=== PATIENT | female | born 1940 | race Caucasian/White ===

== ENCOUNTER 2016-07-02 15:50 | Emergency (ER) | payer OTHER ==
[~2016-07-02] VITALS: Ht 165.1 cm; Wt 61.0 kg
[2016-07-02 15:53] VITALS: BP 130/61; PULSE 78; RESP 16; TEMP 98.9; O2SAT 95
[2016-07-02] MEDS ORDERED: [UNRECOGNIZED DRUG - CODE] PO (15:59)
[2016-07-02] MEDS ORDERED: PRAV40TA2 PO (15:59)
[2016-07-02] MEDS ORDERED: FLUO20CA4 PO (15:59)
[2016-07-02] MEDS ORDERED: TRAZ100T4 PO (15:59)
[2016-07-02] MEDS ORDERED: CALCTAB23 PO (15:59)
[2016-07-02] MEDS ORDERED: HYDR-3516 PO (16:20)
--- NOTE | 2016-07-02 16:47 | PD ---
HPI Chief Complaint: Musculoskeletal Complaint Time Seen by Provider: 16:24 Travel History International Travel<30 days: No Contact w/Intl Traveler<30days: No Traveled to known affect area: No History of Present Illness HPI 75-year-old female here for evaluation of left shoulder and left arm pain that started 2 days ago after falling onto her left side. The patient reports that she was trying to get something from underneath her bed when she fell to the ground. Her and landed on top for her. Pain is mainly in her left shoulder and left arm, however the patient also complains of some right shoulder pain. Pain is moderate, constant, worse with movements. She has limited range of motion in her left shoulder because of the pain. She denies head injury or LOC. No head neck or back pain. No chest pain or dyspnea. No abdominal pain. No pain in her lower extremities. She is not on any antiplatelets or anticoagulants. PFSH Past Medical History Arthritis: Yes High Cholesterol: Yes Diminished Hearing: No Reproductive: Yes (endometreosis) Tetanus Vaccination: < 5 Years Influenza Vaccination: Yes ?: Not Past Surgical History Cholecystectomy: Yes Gynecologic Surgery: Yes (endometreosis) Neurologic Surgery: Yes (L5 disc repair) Social History Alcohol Use: No Tobacco Use: No Substance Use: No Allergies-Medications (Allergen,Severity, Reaction): Coded Allergies: No Known Allergies (Unverified , 07/02/16) Reported Meds & Prescriptions Reported Meds & Active Scripts Active Reported Hydrocodone-Acetaminophen 5-325 mg Tab 1 Tab PO Q6H PRN Wal-Fex Allergy (Fexofenadine HCl) 60 Mg Tab 1 Tab PO DAILY Fluoxetine (Fluoxetine HCl) 20 Mg Cap 20 Mg PO DAILY Calcium 500 + D (Calcium Carbonate-Vitamin D) 500-125 Mg-Unit Tab 1 Tab PO BID Pravastatin 40 Mg Tab 40 Mg PO HS Trazodone (Trazodone HCl) 100 Mg Tab 100 Mg PO HS Review of Systems Except as stated in HPI: all other systems reviewed are Neg Physical Exam Narrative GENERAL: Well-developed, well-nourished, comfortable, reading a book, no acute distress. SKIN: Warm and dry. No lacerations, abrasions, or ecchymosis. HEAD: Atraumatic. Normocephalic. EYES: Pupils equal and round. No scleral icterus. No injection or drainage. ENT: Mucous membranes pink and moist. NECK: Trachea midline. No JVD. No midline cervical spinous step-off or tenderness. CARDIOVASCULAR: Regular rate and rhythm. Bilateral distal radial pulses are brisk and equal. RESPIRATORY: No accessory muscle use. Clear to auscultation. Breath sounds equal bilaterally. GASTROINTESTINAL: Abdomen soft, non-tender, nondistended. MUSCULOSKELETAL: Left shoulder/proximal humeral area with moderate edema, no ecchymosis, no obvious bony normality, limited range of motion secondary to pain , diffusely tender, no warmth or erythema. There is mild tenderness of the patient's right shoulder without obvious deformity, with normal range of motion. No midline vertebral step-off or tenderness. NEUROLOGICAL: Awake and alert. No obvious cranial nerve deficits. Motor grossly within normal limits. Normal speech. Normal sensation in bilateral upper extremities. PSYCHIATRIC: Appropriate mood and affect; insight and judgment normal. Data Data Last Documented VS Vital Signs Date Time Temp Pulse Resp B/P Pulse Ox O2 Delivery O2 Flow Rate FiO2 07/02/16 15:53 98.9 78 16 130/61 95 Orders Shoulder, Complete (>2vws) (07/02/16 ) Shoulder, Complete (>2vws) (07/02/16 ) Humerus (Min 2vws) (07/02/16 ) Forearm (2vws) (07/02/16 ) Sling And Swathe (07/02/16 ) MDM Medical Decision Making Medical Screen Exam Complete: Yes Emergency Medical Condition: Yes Differential Diagnosis Left shoulder fracture, left proximal humerus fracture, left shoulder dislocation, left shoulder contusion Narrative Course Vital signs are within normal limits. Left shoulder x-ray: Nondisplaced fracture of the proximal left humerus. Left humerus x-ray: Nondisplaced fracture of the left proximal humerus. Left forearm x-ray: CONCLUSION: Suspected chronic change at the medial aspect of the wrist. Acute fracture is not clearly identified. Right shoulder x-ray: CONCLUSION: Prominent defect seen at the mid right clavicle. This could be from a prior injury given the size of the gap. An acute fracture could have a similar appearance although with the gap being this wide some degree of chronic resorption at a prior fracture site is thought more likely. Patient was made aware of all findings. There is no tenderness or deformity at the left wrist. She reports 2 prior surgeries for her right clavicle for fracture. Left arm was placed in a sling and swath. She tells me that she has hydrocodone prescription at home and does not need anything more than that for pain. She is stable for discharge with outpatient follow-up with an orthopedic surgeon this week. She was informed on when to return to the emergency department. She verbalizes understanding and agreement with plan. Diagnosis Primary Impression: Closed fracture of left proximal humerus Qualified Code: S42.295A - Other closed nondisplaced fracture of proximal end of left humerus, initial encounter Referrals: Elieser Morgan MD 3 days Orthopedic surgeon Additional Instructions: Follow-up with orthopedic surgeon Dr. Morgan or an orthopedic surgeon of your choice this week. Return to the emergency department for worsening symptoms or any other concerns. Disposition: 01 DISCHARGE HOME Condition: Stable Clifford Long MD Jul 02, 2016 16:47
--- NOTE | 2016-07-02 17:10 | RADHPO ---
EXAM DATE/TIME: 07/02/2016 16:49 [facility] COMPARISON: No previous studies available for comparison. INDICATIONS : Left shoulder pain, fall. MEDICAL HISTORY : None. SURGICAL HISTORY : None. ENCOUNTER: Initial ACUITY: 2 days PAIN SCORE: 10/10 LOCATION: Left proximal humerus FINDINGS: There is nondisplaced fracture at the surgical neck of the proximal left humerus. The glenohumeral an d acromioclavicular joints are normally aligned. The bones are osteopenic. CONCLUSION: Nondisplaced fracture of the proximal left humerus. Phoenix Cordoba MD on July 02, 2016 at 17:07 Board Certified Radiologist. This report was verified electronically.
--- NOTE | 2016-07-02 17:11 | RADHPO ---
EXAM DATE/TIME: 07/02/2016 16:59 [facility] COMPARISON: No previous studies available for comparison. INDICATIONS : Left arm pain, fall. MEDICAL HISTORY : None. SURGICAL HISTORY : None. ENCOUNTER: Initial ACUITY: 2 days PAIN SCORE: 10/10 LOCATION: Left proximal humerus FINDINGS: There is a nondisplaced fracture of the proximal humerus at the surgical neck. The glenohumeral and e lbow joints are normally aligned. CONCLUSION: Nondisplaced proximal left humeral fracture. Phoenix Cordoba MD on July 02, 2016 at 17:09 Board Certified Radiologist. This report was verified electronically.
--- NOTE | 2016-07-02 17:28 | RADHPO ---
EXAM DATE/TIME: 07/02/2016 17:01 [facility] COMPARISON: No previous studies available for comparison. INDICATIONS : Left forearm pain, fall. MEDICAL HISTORY : None. SURGICAL HISTORY : None. ENCOUNTER: Initial ACUITY: 2 days PAIN SCORE: 1/10 LOCATION: Left forearm FINDINGS: Two view examination of the left forearm demonstrates no evidence of fracture or dislocation. Bony m ineralization is normal. There is some hypertrophic change seen adjacent to the pisiform. This could be related to the ulnar styloid. The ulnar styloid at the distal ulna is not seen. However, an area of cortical disruption is also not seen. The soft tissue structures are intact. CONCLUSION: Suspected chronic change at the medial aspect of the wrist. Acute fracture is not clearly identified. Phoenix Cordoba MD on July 02, 2016 at 17:24 Board Certified Radiologist. This report was verified electronically.
--- NOTE | 2016-07-02 17:34 | RADHPO ---
EXAM DATE/TIME: 07/02/2016 17:08 [facility] COMPARISON: No previous studies available for comparison. INDICATIONS : Right shoulder pain, fall. MEDICAL HISTORY : None. SURGICAL HISTORY : None. ENCOUNTER: Initial ACUITY: 2 days PAIN SCORE: 5/10 LOCATION: Right posterior shoulder FINDINGS: There is absence of the midportion of the clavicle. The gap between the two clavicular fragments yola sures approximately 2.8 cm. The acromioclavicular joint and glenohumeral joint are normally aligned. The proximal humerus and scapula appear grossly intact. CONCLUSION: Prominent defect seen at the mid right clavicle. This could be from a prior injury g iven the size of the gap. An acute fracture could have a similar appearance although with the gap be ing this wide some degree of chronic resorption at a prior fracture site is thought more likely. Phoenix Cordoba MD on July 02, 2016 at 17:22 Board Certified Radiologist. This report was verified electronically.
== END 2016-07-02 18:18 | disposition home or self-care (01) ==
LOC: PHEFT 15:50
DX: S42.295A Other nondisplaced fracture of upper end of left humerus, initial encounter for closed fracture (principal); E78.00 Pure hypercholesterolemia, unspecified; M19.90 Unspecified osteoarthritis, unspecified site; W19.XXXA Unspecified fall, initial encounter; W50.0XXA Accidental hit or strike by another person, initial encounter; Y93.9 Activity, unspecified; Y92.013 Bedroom of single-family (private) house as the place of occurrence of the external cause; Y99.9 Unspecified external cause status
CPT/HCPCS: 29240; 73030; 73060; 73090

== ENCOUNTER → 2016-12-03 | Day surgery (SDC) | payer OTHER ==
[~2016-12-03] MED LIST: ACETAMINOPHEN/HYDROcodone 325 MG/5 MG TAB ONE; BUPIVACAINE/EPINEPHRINE 0.5% 50 ML VIAL ONE; CALCTAB23 PO; FLUO20CA4 PO; HYDR-3516 PO; KETOROLAC TROMETHAMINE 30 MG/ML (IVP) VIAL IV PUSH ONE; LACTATED RINGER'S 1000 ML INJ 1,000 ML ONE; MORPHINE SULFATE 4 MG/ML INJ ONE; ONDANSETRON HCL 4 MG/2 ML VIAL IV PUSH ONE; PRAV40TA2 PO; PROPOFOL 200 MG/20 ML AMP IV ONE; TRAZ100T4 PO; [UNRECOGNIZED DRUG - CODE] PO; ceFAZolin INJ 1,000 MG VIAL ONE
--- NOTE | 2016-12-03 13:05 | MP ---
cc: GEORGI MAYO M.D. DATE OF SURGERY 12/03/2016 PREOPERATIVE DIAGNOSIS Right knee medial and lateral meniscus tears. POSTOPERATIVE DIAGNOSIS Right knee medial and lateral meniscus tears. PROCEDURE Right knee arthroscopic partial medial and partial lateral meniscectomy. ANESTHESIA General SURGEON Georgi Mayo MD COMPLICATIONS None known. INDICATION Tegan Brown is a 76-year-old female with severe patellofemoral arthritis and medial and lateral joint line pain with unstable tears identified on MRI scan. She now presents for arthroscopic surgery. The risks and benefits have thoroughly been discussed. The options and alternatives to treatment discussed and no guarantees were made or offered. She wished to proceed with surgery. Informed stent was obtained. PROCEDURE The patient was brought in the operating room. She was placed under general anesthetic. The right lower extremity was prepped and draped in the usual sterile fashion. IV antibiotics given. Time-out was completed. Marcaine injected about the inferolateral portal, made, blunt trocar used to use to introduce the cannula and the knee was insufflated with saline. Patellofemoral joint showed severe [id number] chondromalacia. No grossly unstable cartilage identified. The medial compartment showed unstable tear involving the posterior horn and body of the medial meniscus involving approximately 40% the depth of the meniscus. We proceeded with arthroscopic partial medial meniscectomy using a combination of basket forceps and arthroscopic shaver. We then visualized the lateral compartment where a complex unstable tear involving the entire anterior horn, but also the midbody and posterior horn. This was photographed and then we proceeded with arthroscopic partial lateral meniscectomy using a combination of basket forceps and arthroscopic shaver. There was unstable cartilage on the weightbearing portion of the lateral femoral condyle and we proceeded with chondroplasty in this location, fine-tuned and smoothed, switched over a switching stick and visualized from the medial portal and brought the shaver in from this angle and visualize from this angle and then back into the medial compartment and fine-tuned and smoothed here. Reassessed from the lateral portal the patellofemoral joint and medial lateral compartments. No loose bodies. The arthroscopic equipment was removed. Marcaine had been injected about the portals. Steri-Strips applied. Sterile dressing applied. The patient was awoken and returned to the recovery room in stable condition. MD USKUMAR Lainez/ANDRADE /9:48 AM /12:57 PM
== END | disposition home or self-care (01) ==
LOC: ESDC 07:30
PROVIDERS: ATTEND Orthopaedic Surgery Sports Medicine
DX: S83.241A Other tear of medial meniscus, current injury, right knee, initial encounter (principal); S83.271A Complex tear of lateral meniscus, current injury, right knee, initial encounter
CPT/HCPCS: 01400; 29880; J0690; J1885; J2270; J2405; J3010; J7120